=== PATIENT | male | born 1925 | race Caucasian/White ===

== ENCOUNTER → 2016-08-13 | Outpatient (CLI) | payer MEDICARE, BC ==
[~2016-08-13] MED LIST: ACET-62 PO; ALBU18HF2 ORAL INH; ASPI-557 PO; CARB15DR94 EACH EAR; FAMO20TA8 PO; HYDR-4246 PO; LEG CRAMP MED PO; LEVE500T9 PO; LISI-625 PO; MIDO5TAB PO; VENL75TA4 PO
== END ==
LOC: NWCC 13:12
PROVIDERS: ATTEND Internal Medicine
DX: L89.623 Pressure ulcer of left heel, stage 3 (principal); L89.613 Pressure ulcer of right heel, stage 3; Z99.3 Dependence on wheelchair; I10 Essential (primary) hypertension; J44.9 Chronic obstructive pulmonary disease, unspecified; M62.81 Muscle weakness (generalized); R26.2 Difficulty in walking, not elsewhere classified; E78.5 Hyperlipidemia, unspecified; N40.0 Benign prostatic hyperplasia without lower urinary tract symptoms; R60.1 Generalized edema
CPT/HCPCS: 11042; A6209; G0463

== ENCOUNTER → 2016-08-20 | Outpatient (CLI) | payer MEDICARE, BC ==
[~2016-08-20] MED LIST changes: +CALMOSEPTINE OINTMENT 3.5 G PACKET TOP ONE; +SILVER NITRATE APPLICATOR TOP ONE
== END ==
LOC: NWCC 14:20
PROVIDERS: ATTEND Internal Medicine
DX: L89.623 Pressure ulcer of left heel, stage 3 (principal); L89.613 Pressure ulcer of right heel, stage 3
CPT/HCPCS: 11042; A6209; A6210; A9270

== ENCOUNTER → 2016-09-03 | Outpatient (CLI) | payer MEDICARE, BC ==
[~2016-09-03] MED LIST changes: -SILVER NITRATE APPLICATOR TOP ONE
== END ==
LOC: NWCC 13:27
PROVIDERS: ATTEND Internal Medicine
DX: L89.623 Pressure ulcer of left heel, stage 3 (principal); L89.613 Pressure ulcer of right heel, stage 3; S00.01XA Abrasion of scalp, initial encounter; M62.81 Muscle weakness (generalized); J44.9 Chronic obstructive pulmonary disease, unspecified
CPT/HCPCS: 11042; A6209; A9270; G0463

== ENCOUNTER → 2016-09-17 | Outpatient (CLI) | payer MEDICARE, BC | LOC: NWCC 13:36 | PROVIDERS: ATTEND Internal Medicine | DX: L89.623 Pressure ulcer of left heel, stage 3 (principal); L89.613 Pressure ulcer of right heel, stage 3; S01.00XA Unspecified open wound of scalp, initial encounter; Z91.81 History of falling; F44.89 Other dissociative and conversion disorders | CPT/HCPCS: 11042; A6209; A9270; G0463 ==